=== PATIENT | female | born 1950 | race Caucasian/White ===

== ENCOUNTER → 2016-07-18 | Outpatient (CLI) | payer BC, MEDICARE ==
[2016-04-21 10:00] VITALS: BP 144/65
[~2016-07-18] MED LIST: ACYC15OI; ACYC5CRE2; ACYC800T4; AMLO5TAB2 PO; ASCO500T3 PO; BD; CELE-20; CEPH-264 PO; CLON0.5T3 PO; DOCU-27 PO; DOXY100C2; FENT1PAT13 TD; FENT1PAT21 TD; GABA100C6 PO; HYDR-2672 PO; HYDR-2762; INSU100I27 SQ; INSU100V SQ; INSU100V13 SQ; INSU100V8; INSU300I SQ; IOHEXOL 300 MG/ML 75 ML VIAL IV ONE; LIDO700A27; MUPI22OI2; NAPR500T3 PO; NORT10CA; ONDA4TAB7 PO; ONDA8TAB15; PENC5CRE; PREG150C; TEMA15CA PO; THYR30TA PO; THYR60TA; THYR60TA PO; TRAM50TA PO; TRIF7.5D6; VALA500T; ZINC50TA33 PO
[2016-07-18 09:54] LABS: CREATININE 0.7 mg/dL (0.6-1.0); GFR 83.7
--- NOTE | 2016-07-18 11:30 | RAD ---
Indication lung cancer. Status post radiation therapy. Contrast imaging through the chest was performed. Proximally 75 cc of Omnipaque 300 was administered. Comparison is made to an examination 04/02/2016. Known soft tissue mass at the left lung apex persists but is smaller in size. It now measures approximately 3.5 cm in greatest dimension whereas previously corresponding measurement was 4.2. Soft tissue fullness at the left thoracic inlet is also improved. Left suprahilar mass is larger than on the previous study measuring now approximately 3 cm whereas previously this measurement was approximately 2. Previously seen small pleural-based nodule in the left upper lobe is larger compatible with metastatic disease. Additional small nodules are seen in the left upper lobe also compatible with parenchymal metastatic disease (image 24 and 25 series 2). There may be a metastatic deposit at the left lung base laterally and there is a small nodule in the left lower lobe and left upper lobe, image 28 also compatible with metastatic disease. A new nodule is noted in the right lower lobe, image 28 compatible with metastatic disease. Dominant nodule in the right lower lobe, seen previously appears relatively stable. The thoracic aorta appears unremarkable. Imaging through the upper abdomen is unremarkable. IMPRESSION: Overall there is worsening disease. The dominant mass in the left upper lobe is slightly smaller but there is increasing suprahilar adenopathy and there are several pulmonary nodules in the lungs compatible with metastatic disease PQRS Compliance Statement: One or more of the following individualized dose reduction techniques were utilized for this examination: 1. Automated exposure control 2. Adjustment of the mA and/or kV according to patient size 3. Use of iterative reconstruction technique
== END | disposition home or self-care (01) ==
LOC: CT 13:17
PROVIDERS: ATTEND Radiology Radiation Oncology
DX: C34.90 Malignant neoplasm of unspecified part of unspecified bronchus or lung (principal); Z92.3 Personal history of irradiation; Z87.891 Personal history of nicotine dependence; E11.9 Type 2 diabetes mellitus without complications
CPT/HCPCS: 36415; 71260; 82565; Q9967